=== PATIENT | male | born 1975 | race Caucasian/White ===

== ENCOUNTER 2021-01-06 04:59 | Emergency (ER) | payer OTHER ==
[2021-01-06 05:46] LABS: BASOPHIL 0.5 % (0-2); EOSINOPHIL 2.3 % (0-5); HCT 41.9 % (42.0-52.0); HGB 13.9 g/dl (13.2-18.0); LYMPHOCYTE 30.5 % (15-48); MCH 31.2 pg (25.0-31.0); MCHC 33.2 g/dL (32.0-36.0); MCV 94.2 fL (78.0-100.0); MONOCYTE 8.7 % (0-12); MPV 9.8 fL (6.0-9.5); NEUTROPHIL 57.9 % (41-80); NRBC 0; PLT 199 K/uL (150-400); RBC 4.45 M/uL (4.70-6.00); RDW 13.9 % (11.5-14.0); WBC 7.3 K/uL (4.0-10.5)
[2021-01-06 06:11] LABS: ALBUMIN 3.6 g/dL (3.4-5.0); BILIRUBIN - TOTAL 0.3 mg/dL (0.2-1.0); BUN/CREAT RATIO (CALC) 9.3 RATIO; CREATININE 1.08 mg/dL (0.67-1.17); GLOBULIN (CALCULATION) 3.8 g/dL; POTASSIUM 4.9 mmol/L (3.5-5.1); TOTAL PROTEIN 7.4 g/dL (6.4-8.2)
[2021-01-06] MEDS ORDERED: CYCLOBENZAPRINE10 MG PO (06:26)
[2021-01-06] MEDS ORDERED: DICLOFENAC SODI75 MG PO (06:26)
== END 2021-01-06 06:40 | disposition home or self-care (01) ==
LOC: FER 04:59
PROVIDERS: Emergency Medicine
DX: M54.6 Pain in thoracic spine (principal); R07.9 Chest pain, unspecified; F17.210 Nicotine dependence, cigarettes, uncomplicated
CPT/HCPCS: 36415; 71046; 80053; 84484; 85025; 85379; 93005; J1885